=== PATIENT | female | born 1990 | race Caucasian/White ===

== ENCOUNTER 2019-08-19 16:40 | Emergency (ER) | payer MEDICAID ==
[~2019-08-19] VITALS: Ht 165.1 cm; Wt 49.9 kg
[2019-08-19] MEDS ORDERED: Ketorolac 60mg Inj IM ONE (17:15)
[2019-08-19] MEDS ORDERED: Omnipaque-300 100ml vial INJ PRN (17:15)
[2019-08-19] MEDS ORDERED: Ketorolac 30mg Inj IM ONE (17:30)
--- NOTE | 2019-08-19 17:35 | NUR ---
ED Nurse Note:pt. came from home with c/o abdominaol pain, VSS, blood and urine sent to labs, given IV meds and fluids
[2019-08-19 17:43] VITALS: BP 106/71
[2019-08-19 17:57] LABS: BASOPHILS % (AUTO) 1.7 % (0.0-2.0); EOSINOPHILS % (AUTO) 1.3 % (0.0-3.0); HEMATOCRIT 42.2 % (37.0-47.0); LYMPHOCYTES % (AUTO) 43.5 % (20.0-45.0); MEAN CORPUSCULAR VOLUME 95 FL (80-99); MONOCYTES % (AUTO) 5.4 % (1.0-10.0); NEUTROPHILS % (AUTO) 48.1 % (45.0-75.0); PLATELET COUNT 220 K/UL (150-450); RED BLOOD COUNT 4.46 M/UL (4.20-5.40); RED CELL DISTRIBUTION WIDTH 11.7 % (11.6-14.8); WHITE BLOOD COUNT 6.4 K/UL (4.8-10.8)
[2019-08-19 17:59] LABS: ANION GAP 10 mmol/L (5-15); BLOOD UREA NITROGEN 3 mg/dL (7-18); CARBON DIOXIDE 27 MMOL/L (21-32); CHLORIDE 104 MMOL/L (98-107); CREATININE 0.7 MG/DL (0.55-1.30); POTASSIUM 3.8 MMOL/L (3.5-5.1); SODIUM 141 MMOL/L (136-145)
[2019-08-19 18:04] LABS: ALANINE AMINOTRANSFERASE 30 U/L (12-78); ALBUMIN 4.5 G/DL (3.4-5.0); ALBUMIN/GLOBULIN RATIO 1.3 (1.0-2.7); ALKALINE PHOSPHATASE 44 U/L (46-116); ASPARTATE AMINO TRANSFERASE 26 U/L (15-37); BILIRUBIN,TOTAL 0.4 MG/DL (0.2-1.0)
[2019-08-19 18:06] VITALS: BP 110/72
--- NOTE | 2019-08-19 18:26 | Diagnostic Imaging Report ---
EXAM: XR Chest, 1 View CLINICAL HISTORY: ABD PAIN TECHNIQUE: Frontal view of the chest. COMPARISON: No relevant prior studies available. FINDINGS: Lungs: Unremarkable. No consolidation. Pleural space: Unremarkable. No pneumothorax. Heart: Unremarkable. No cardiomegaly. Mediastinum: Unremarkable. Bones/joints: Unremarkable. IMPRESSION: 1. No acute cardiopulmonary disease. 2. If there is continued concern recommend frontal and lateral chest radiographs or CT.
[2019-08-19 18:29] LABS: APPEARANCE,URINE CLEAR; BILIRUBIN, URINE NEGATIVE (NEGATIVE); COLOR,URINE PALE YELLOW; GLUCOSE, URINE (UA) NEGATIVE (NEGATIVE); KETONES,URINE 1+ (NEGATIVE); LEUKOCYTE ESTERASE ,URINE NEGATIVE (NEGATIVE); NITRITE,URINE NEGATIVE (NEGATIVE); PH,URINE 6.5 (4.5-8.0); PROTEIN,URINE NEGATIVE (NEGATIVE); UROBILINOGEN,URINE NORMAL MG/DL (0.0-1.0)
--- NOTE | 2019-08-19 18:46 | Diagnostic Imaging Report ---
EXAM: CT Abdomen and Pelvis With Intravenous Contrast CLINICAL HISTORY: ABD PAIN TECHNIQUE: Axial computed tomography images of the abdomen and pelvis with intravenous contrast. CTDI is 3.1 mGy and DLP is 138 mGy-cm. One or more of the following dose reduction techniques were used: automated exposure control, adjustment of the mA and/or kV according to patient size, use of iterative reconstruction technique. Coronal and sagittal reformatted images were created and reviewed. COMPARISON: No relevant prior studies available. FINDINGS: Lung bases: Unremarkable. No mass. No consolidation. ABDOMEN: Liver: Unremarkable. No mass. Gallbladder and bile ducts: Unremarkable. No calcified stones. No ductal dilation. Pancreas: Unremarkable. No mass. No ductal dilation. Spleen: Unremarkable. No splenomegaly. Adrenals: Unremarkable. No mass. Kidneys and ureters: Unremarkable. No solid mass. No hydronephrosis. Stomach and bowel: Unremarkable. No obstruction. No mucosal thickening. PELVIS: Appendix: Appendix not definitively identified due to paucity of peritoneal fat and numerous fluid-filled bowel loops in the pelvis. If there is continued concern, consider repeating the study with oral and IV contrast. Bladder: Urinary bladder wall thickening, correlate to exclude infectious or inflammatory cystitis. Reproductive: Unremarkable as visualized. ABDOMEN and PELVIS: Intraperitoneal space: Unremarkable. No free air. No significant fluid collection. Bones/joints: No acute fracture. No dislocation. Soft tissues: Unremarkable. Vasculature: Unremarkable. No abdominal aortic aneurysm. Lymph nodes: Unremarkable. No enlarged lymph nodes. IMPRESSION: 1. Urinary bladder wall thickening, correlate to exclude infectious or inflammatory cystitis. 2. Appendix not definitively identified due to paucity of peritoneal fat and numerous fluid-filled bowel loops in the pelvis. If there is continued concern, consider repeating the study with oral and IV contrast. 3. Otherwise no acute abnormality definitively identified to account for patient presentation.
--- NOTE | 2019-08-19 18:57 | Emergency Room Report ---
History of Present Illness General Chief Complaint: Abdominal Pain Source: Patient (Jhonatan Trevizo) Present Illness HPI 28-year-old female with history of gastroparesis with a recent endoscopy done 2 years ago here complaining of epigastric and right upper quadrant abdominal pain that started today rating a 5 out of 10 without radiation. Complains of few bouts of nonbloody emesis. Denies diarrhea and constipation. Denies fever and chills. Reports that the symptoms have been ongoing for several months now. Patient has not established a new primary doctor and global logistics manager. Patient called earlier today and asked if she should come in. Patient denies any bloody emesis. Reports that she has been losing 5 pounds in the past week and a half due to not being hungry. Reports that she stop smoking marijuana about a week ago. However was using it with tobacco every day for several months. Denies any alcohol intake. Denies all other drug use. Sitting comfortably with stable vital signs. Denies chest pain, shortness of breath, headache and dizziness. Denies . Denies any urinary symptoms. Patient emphasizes that the pain is worse postprandial. (Jhonatan Trevizo) Allergies: Coded Allergies: No Known Allergies (Unverified , 08/19/19) COVID-19 Screening Contact w/high risk pt: No Recent Travel to affected area: No Experienced COVID-19 symptoms?: No COVID-19 Testing performed SALES EXHIBITOR: No (Jhonatan Trevizo) Patient History Past Medical History: see triage record Past Surgical History: none Social History: Reports: drug use - marijuana Now: No Immunizations: UTD Reviewed Nursing Documentation: PMH: Agreed; PSxH: Agreed (Jhonatan Trevizo) Nursing Documentation-PMH Hx Gastrointestinal Problems: Yes - gastroparesis (Jhonatan Trevizo) Review of Systems All Other Systems: negative except mentioned in HPI (Jhonatan Trevizo) Physical Exam Vital Signs Date Time Temp Pulse Resp B/P (MAP) Pulse Ox O2 Delivery O2 Flow Rate FiO2 08/19/19 17:12 97.9 87 16 106/71 (83) 100 Room Air Sp02 EP Interpretation: reviewed, normal General Appearance: no apparent distress, alert, GCS 15, non-toxic Head: normocephalic, atraumatic Eyes: bilateral eye normal inspection, bilateral eye PERRL ENT: hearing grossly normal, normal pharynx, no angioedema, normal voice Neck: full range of motion, supple, supple/symm/no masses Respiratory: normal inspection, chest non-tender, lungs clear, no rhonchi Cardiovascular #1: regular rate, rhythm, no edema Gastrointestinal: normal bowel sounds, non tender, soft, no mass, no organomegaly, no peritonitis, no bruit, non-distended, no guarding, no hernia, no pulsatile mass, no rebound Rectal: deferred Genitourinary: no CVA tenderness Musculoskeletal: back normal, normal range of motion, no calf tenderness Neurologic: alert, motor strength/tone normal, oriented x3, sensory intact, responsive, speech normal Psychiatric: judgement/insight normal, memory normal, mood/affect normal, no suicidal/homicidal ideation Skin: no rash Lymphatic: no adenopathy (Jhonatan Trevizo) Medical Decision Making PA Attestation All diagnoses and treatment plans were reviewed and discussed with my supervising physician Dr. Cade (Jhonatan Trevizo) Diagnostic Impression: Primary Impression: Abdominal pain Additional Impression: Cystitis ER Course 28-year-old female with history of gastroparesis with a recent endoscopy done 2 years ago here complaining of epigastric and right upper quadrant abdominal pain that started today rating a 5 out of 10 without radiation. Complains of few bouts of nonbloody emesis. Denies diarrhea and constipation. Denies fever and chills. Reports that the symptoms have been ongoing for several months now. Patient has not established a new primary doctor and global logistics manager. Patient called earlier today and asked if she should come in. Patient denies any bloody emesis. Reports that she has been losing 5 pounds in the past week and a half due to not being hungry. Reports that she stop smoking marijuana about a week ago. However was using it with tobacco every day for several months. Denies any alcohol intake. Denies all other drug use. Sitting comfortably with stable vital signs. Denies chest pain, shortness of breath, headache and dizziness. Denies . Denies any urinary symptoms. Patient emphasizes that the pain is worse postprandial. Ddx considered but are not limited to: appendicitis, cholecystis, gastritis, gastroenteritis, UTI, pyelonephritis, SBO, diverticulitis, influenza with GI manifestation, [place], complication with Vital signs: are WNL, pt. is afebrile H&PE are most consistent with: Gastritis, abdominal pain, cystitis most likely infectious ORDERS: abdominal CT, abdominal pain set, EKG, chest x-ray, Zofran, omeprazole, Tylenol ED INTERVENTIONS: NS bolus, Pepcid, Zofran, Toradol DISCHARGE: At this time pt. is stable for d/c to home. Will provide printed patient care instructions, and any necessary prescriptions. Care plan and follow up instructions have been discussed with the patient prior to discharge. Take medication as directed, follow with your primary care provider, you need to be seen by global logistics manager for endoscopy and colonoscopy to rule out underlying GI diseases such as ulcerative colitis and Crohn's disease. If worsening symptoms return to the emergency room (Jhonatan rTevizo) EKG Diagnostic Results Rate: normal Rhythm: NSR ST Segments: no acute changes Other Impression No acute ST changes (Jhonatan Trevizo) Chest X-Ray Diagnostic Results Chest X-Ray Diagnostic Results : Chest X-Ray Ordered: Yes # of Views/Limited/Complete: 1 View Indication: Other EP Interpretation: Yes PA Xray: Interpretation reviewed, by supervising MD, and agrees with findings. Interpretation: no consolidation, no effusion, no pneumothorax Impression: No acute disease Electronically Signed by: Jhonatan Robertson PA-C (Jhonatan Trevizo) Chest X-Ray Diagnostic Results : Electronically Signed by: Nelson Rodrigues documentation of Xray reviewed by me and is accurate, Mian Cade MD (Mian Cade MD) CT/MRI/US Diagnostic Results CT/MRI/US Diagnostic Results : Imaging Test Ordered: CT abd pelvis with contrast Impression COMPARISON: No relevant prior studies available. FINDINGS: Lung bases: Unremarkable. No mass. No consolidation. ABDOMEN: Liver: Unremarkable. No mass. Gallbladder and bile ducts: Unremarkable. No calcified stones. No ductal dilation. Pancreas: Unremarkable. No mass. No ductal dilation. Spleen: Unremarkable. No splenomegaly. Adrenals: Unremarkable. No mass. Kidneys and ureters: Unremarkable. No solid mass. No hydronephrosis. Stomach and bowel: Unremarkable. No obstruction. No mucosal thickening. PELVIS: Appendix: Appendix not definitively identified due to paucity of peritoneal fat and numerous fluid-filled bowel loops in the pelvis. If there is continued concern, consider repeating the study with oral and IV contrast. Bladder: Urinary bladder wall thickening, correlate to exclude infectious or inflammatory cystitis. Reproductive: Unremarkable as visualized. ABDOMEN and PELVIS: Intraperitoneal space: Unremarkable. No free air. No significant fluid collection. Bones/joints: No acute fracture. No dislocation. Soft tissues: Unremarkable. Vasculature: Unremarkable. No abdominal aortic aneurysm. Lymph nodes: Unremarkable. No enlarged lymph nodes. IMPRESSION: 1. Urinary bladder wall thickening, correlate to exclude infectious or inflammatory cystitis. 2. Appendix not definitively identified due to paucity of peritoneal fat and numerous fluid-filled bowel loops in the pelvis. If there is continued concern, consider repeating the study with oral and IV contrast. 3. Otherwise no acute abnormality definitively identified to account for patient presentation. (Jhonatan Trevizo) Last Vital Signs Date Time Temp Pulse Resp B/P (MAP) Pulse Ox O2 Delivery O2 Flow Rate FiO2 08/19/19 18:06 97.9 67 16 110/72 100 Room Air (Jhonatan Trevizo) Disposition: HOME, SELF-CARE Condition: Stable Scripts Cephalexin* (KEFLEX*) 500 Mg Capsule 500 MG ORAL EVERY 12 HOURS for 7 Days, #14 CAP 0 Refills Prov: Jhonatan Trevizo 08/19/19 Omeprazole (Omeprazole) 20 Mg Tab.rap.dr 20 MG PO BID, #30 TAB Prov: Jhonatan Trevizo 08/19/19 Acetaminophen* (TYLENOL EXTRA STRENGTH*) 500 Mg Tablet 500 MG ORAL Q8H PRN for Prn Headache/Temp > 101, #30 TAB 0 Refills Prov: Jhonatan Trevizo 08/19/19 Ondansetron (Zofran) 4 Mg Tablet 4 MG ORAL Q6H PRN for Nausea & Vomiting, #20 TAB Prov: Jhonatan Trevizo 08/19/19 Referrals: NON PHYSICIAN (PCP) Patient Instructions: Abdominal Pain, Adult, Urinary Tract Infection Additional Instructions: Take medication as directed, follow-up with your primary care provider for referral to global logistics manager for endoscopy and further evaluation. If worsening symptoms return to the emergency room Jhonatan Trevizo Aug 19, 2019 18:57 Mian Cade MD Aug 21, 2019 03:20
[2019-08-19] MEDS ORDERED: ZOFRAN4 M1 ORAL (18:58)
[2019-08-19] MEDS ORDERED: CEPHALEXIN500 MG ORAL (18:58)
[2019-08-19] MEDS ORDERED: TYLENOL EXTRA500 MG ORAL (18:58)
[2019-08-19] MEDS ORDERED: OMEPRAZOLE20 M4 PO (18:58)
[2019-08-19 19:01] VITALS: BP 110/72
--- NOTE | 2019-08-19 19:03 | NUR ---
ER DISCHARGE NOTE: Patient is cleared to be discharged per ERMD, pt is aox4, on room air, with stable vital signs. pt was given dc and prescription instructions, pt was able to verbalize understanding, pt id band and iv site removed without complications. pt is able to ambulate with steady gait. pt took all belongings.
== END 2019-08-19 19:01 | disposition home or self-care (01) ==
LOC: EMR 17:20
DX: R10.13 Epigastric pain (principal); N30.90 Cystitis, unspecified without hematuria
CPT/HCPCS: 36415; 71045; 74177; 80053; 80307; 81003; 81025; 83690; 84484; 85025; 85610; 85730; 86850; 86900; 86901; 93005; 96361; 96372; 96374; 96375; G0480; J1885; J2405; J7030; Q9967; S0028; Z7502; 99284